=== PATIENT | female | born 1945 | race Caucasian/White ===

== ENCOUNTER 2017-05-23 06:59 | Day surgery (SDC) | payer OTHER ==
[2017-05-18 14:36] VITALS: BMI 23.5
[2017-05-23] MEDS ORDERED: PROPOFOL 20 ML ONE ×2 (07:31)
[2017-05-23] MEDS ORDERED: LIDOCAINE HCL/PF 2% SDV 5ML VIAL ONE (07:32)
[2017-05-23 09:24] VITALS: TEMP 97.9
[2017-05-23 09:54] VITALS: BP 124/69; PULSE 62
== END 2017-05-23 09:50 | disposition home or self-care (01) ==
LOC: FASU-ENDO 06:59
PROVIDERS: ATTEND Internal Medicine Gastroenterology
PROC: 0DJD8ZZ Inspection of Lower Intestinal Tract, Via Natural or Artificial Opening Endoscopic (ICD-10-PCS; principal; 2017-05-23 08:49)
DX: Z86.010 Personal history of colon polyps (principal)

== ENCOUNTER 2022-05-17 07:22 | Day surgery (SDC) | payer OTHER, MEDICARE ==
[2022-05-13 16:39] VITALS: BMI 23.5
[2022-05-17] MEDS ORDERED: PROPOFOL 80 ML ONE (08:06)
[2022-05-17] MEDS ORDERED: LIDOCAINE HCL/PF 2% SDV 5ML VIAL ONE (08:06)
[2022-05-17 08:43] VITALS: TEMP 97.1
[2022-05-17 09:16] VITALS: BP 122/80; PULSE 82; RESP 19
== END 2022-05-17 09:13 | disposition home or self-care (01) ==
LOC: FASU-ENDO 07:22
PROVIDERS: ATTEND Internal Medicine Gastroenterology
PROC: 0DJD8ZZ Inspection of Lower Intestinal Tract, Via Natural or Artificial Opening Endoscopic (ICD-10-PCS; principal; 2022-05-17 08:03)
DX: Z12.11 Encounter for screening for malignant neoplasm of colon (principal); Z86.010 Personal history of colon polyps; K57.30 Diverticulosis of large intestine without perforation or abscess without bleeding